=== PATIENT | male | born 1965 | race Caucasian/White ===

== ENCOUNTER → 2017-09-08 | Outpatient (CLI) | payer BC ==
[~2017-09-08] VITALS: Ht 180.3 cm; Wt 104.0 kg
[~2017-09-08] MED LIST: ACEBUTOLOL HYD200 MG PO; ASPIRIN 81M81 MG/TA2 PO; GLUCOPHAGE500 MG/TAB PO; OMEGA-3 1000 MG1 CAP PO; PLAVIX 75MG TAB75 MG PO; PRAVACHOL 20MG20 MG PO; PRINIVIL10 MG PO
[2017-09-08 09:55] VITALS: BP 165/99; PULSE 60
[2017-09-08 10:55] VITALS: BP 165/100; PULSE 58
[2017-09-08 11:10] VITALS: BP 162/100; PULSE 62
== END ==
LOC: COL.RAD 09:25
DX: M48.02 Spinal stenosis, cervical region (principal)
CPT/HCPCS: J1100